=== PATIENT | female | born 1960 | race Caucasian/White ===

== ENCOUNTER 2016-02-18 17:50 | Emergency (ER) | payer OTHER ==
[~2016-02-18] VITALS: Ht 157.5 cm; Wt 95.1 kg
[~2016-02-18 17:50] MED LIST: ACETTAB14 PO; ASPI81TA28 PO; CARV6.252 PO; LEVO175T3 PO; MULT-513 PO; OXYC-643 PO
[2016-02-18 17:52] VITALS: TEMP 36.4; Ht 157.5 cm; Wt 95.1 kg
[2016-02-18] MEDS ORDERED: TRAZ100T29 PO (18:22)
[2016-02-18] MEDS ORDERED: CITA40TA4 PO (18:22)
[2016-02-18] MEDS ORDERED: LEVO200T PO (18:22)
[2016-02-18] MEDS ORDERED: PANT40TA PO (18:22)
[2016-02-18] MEDS ORDERED: SODIUM CHLORIDE 0.9% 1000ML 1,000 ML IV STA (20:08)
[2016-02-18] MEDS ORDERED: METOCLOPRAMIDE HCL INJ 5 MG/ML 2 ML VIAL IV STA (20:08)
[2016-02-18] MEDS ORDERED: DiphenhydrAMINE HCL 50 MG/ML VIAL IV STA (20:08)
[2016-02-18] MEDS ORDERED: KETOROLAC TROMETHAMINE 30 MG/ML VIAL IV STA (20:08)
[2016-02-18] MEDS ORDERED: LORAZEPAM 2 MG/ML 1 ML VIAL IV STA (21:19)
--- NOTE | 2016-02-18 22:08 | EMERGENCY ROOM VISIT NOTE ---
History Report prepared by Randal: Julián Lee Under the Supervision of: Dr. Ger Mane M.D. First contact with patient: 19:18 Chief Complaint: HEADACHE Stated Complaint: MIGRAINE, SICK STOMACH History of Present Illness The patient is a 55 year old female who presents to the Emergency Room with complaints of a constant migraine starting 0230 this morning. The patient currently rates her discomfort as a 7/10 in severity. The patient states that she was awake at 0230 this morning, and she got a migraine. She states that she was then asleep, and then it was still present when she woke up and after work, and he states that she is additionally nauseous. The patient states that she took Excedrin to try to help it. She states that the migraine starts at the top of her head and goes behind her eyes. The patient states that is very similar to her past migraines. Pt denies LOC, fevers, chills, diaphoresis, visual changes, neck pain, chest pain, breathing difficulties, vomiting, abdominal pain , back pain, melena, hematochezia, urinary symptoms, numbness, weakness, lymphadenopathy, rash, or other complaints. Source of History: patient Onset: 0230 this morning Position: head Symptom Intensity: 7/10 Quality: other (migraine) Timing: constant Associated Symptoms: + nausea Review of Systems See HPI for pertinent positives and negatives. A total of ten systems were reviewed and were otherwise negative. Past Medical & Surgical Medical Problems: (1) Cardiac Stents Placement (2) Coronary artery disease (3) Diab Rocio Wo Compl, Type Ii Or Unspec Type, Not Uncntrld (4) Hypertension Nos (5) Hyperthyroidism (6) Hypothyroidism Nos (7) Migraine Unspecified W/O Intractable Migraine (8) Pure Hypercholesterolem (9) Pyelonephritis Nos Surgical Problems: (1) History of delivery (2) History of cholecystectomy (3) History of total hysterectomy Family History Diabetes mellitus FH: migraines Hypertension Kidney disease Social History Smoking Status: Former Smoker Alcohol Use: none Drug Use: none Marital Status: Housing Status: lives with significant other Occupation Status: employed Current/Historical Medications Scheduled Aspirin (Aspirin Ec), 81 MG PO DAILY Carvedilol (Coreg), 6.25 MG PO BID Citalopram (Citalopram Hydrobromide), 40 MG PO DAILY Levothyroxine Sodium (Synthroid), 200 MCG PO DAILY Multivitamins/Minerals (Mvi With Minerals), 1 TAB PO QAM Pantoprazole (Protonix), 40 MG PO DAILY Trazodone Hcl (Trazodone), 100 MG PO HS Scheduled PRN Acetaminophen-Caffeine (Excedrin Tension Headache), 1 TAB PO UD PRN for Headache Oxycodone/Acetaminophen 5MG/325MG (Oxycodone/Acetaminophen 5MG/325MG), 1 TAB PO Q6H PRN for Pain Allergies Coded Allergies: Dexamethasone (Unverified Allergy, Severe, "I FEEL LIKE MY SKIN IS CRAWLING,HAIR IS BURNING INSIDE", 02/18/16) Adhesives (Verified Allergy, Mild, 02/18/16) Ampicillin (Verified Allergy, Mild, VOMITTING, 02/18/16) Amitriptyline (Verified Allergy, Unknown, UNKNOWN, 02/18/16) Sumatriptan (Verified Allergy, Unknown, 02/18/16) Prochlorperazine (Verified Adverse Reaction, Unknown, feels weird, 02/18/16 ) Physical Exam Vital Signs Date Time Temp Pulse Resp B/P Pulse Ox O2 Delivery O2 Flow Rate FiO2 02/18/16 20:31 64 22 141/88 95 Room Air 02/18/16 18:33 67 18 131/83 97 02/18/16 17:52 36.4 72 18 144/81 96 Room Air Physical Exam GENERAL: Awake, alert, uncomfortable appearing, no distress HENT: Normocephalic, atraumatic. TM's normal. Oropharynx unremarkable. EYES: PERRL. EOMI. Normal conjunctiva. Sclera non-icteric. NECK: Supple. No nuchal rigidity. FROM. No JVD or bruit. RESPIRATORY: CTA CARDIAC: RRR. No murmur. ABDOMEN: Soft, non distended. No tenderness to palpation. No rebound or guarding. No masses. RECTAL: Deferred. MUSCULOSKELETAL: Unremarkable. No edema. No discoloration. Gross motor strength symmetric. NEURO: Cranial nerves 2-12 grossly intact. Normal sensorium. No sensory or motor deficits noted. Speech normal. No pronator drift. SKIN: No rash or jaundice noted. LYMPH: No adenopathy. Medical Decision & Procedures Medications Administered Medications (Trade) Dose Ordered Sig/Natalie Route Start Time Stop Time Status Last Admin Dose Admin Sodium Chloride (Nss 1000ml) 1,000 ml @ 999 mls/hr Q1H1M STAT IV 02/18/16 20:08 02/18/16 21:08 DC 02/18/16 20:26 999 MLS/HR Metoclopramide HCl (Reglan Inj) 10 mg NOW STAT IV 02/18/16 20:08 02/18/16 20:11 DC 02/18/16 20:27 10 MG Ketorolac Tromethamine (Toradol Inj) 30 mg NOW STAT IV 02/18/16 20:08 02/18/16 20:11 DC 02/18/16 20:26 30 MG Diphenhydramine HCl (Benadryl Inj) 50 mg NOW STAT IV 02/18/16 20:08 02/18/16 20:11 DC 02/18/16 20:26 50 MG Lorazepam (Ativan Inj) 1 mg NOW STAT IV 02/18/16 21:19 02/18/16 21:20 DC 02/18/16 21:42 1 MG ED Course 1931: The patient was evaluated in room B8. A complete history and physical exam was performed. 2007: Benadryl Inj 50mg IV, Toradol Inj 30mg IV, Reglan Inj 10mg IV, Sodium Chloride 1000 ml @ 999 mls/hr IV 2107: I reassessed the patient, and she was feeling better 2118: Ativan Inj 1 mg IV 2127: I reevaluated the patient. Discussed results and discharge instructions: She verbalized understanding and agreement. The patient is ready for discharge. 2154: The patient was doing much better. Discussed discharge and close follow up. Instructions reviewed. Medical Decision Prior records/ancillary studies reviewed. Triage Nursing notes reviewed and agree them. The patient's history was concerning for headache. Differential diagnosis: Etiologies such as migraine headache, meningitis, sinusitis, CO exposure, ICH, SAH, infection, tumor, headache, sinus thrombosis, arterial dissection, as well as others were entertained. Physical examination findings: As above. Non-focal. ER treatment provided: Normal saline 1 L bolus Benadryl 50 mg IV Reglan 10 mg IV Toradol 30 mg IV On reassessment the patient felt better but noted some restless legs. I suspect this may be from the Reglan despite the Benadryl. IV Ativan 1 mg. On reassessment the patient much better. She was relaxed. Her headache was much improved. I discussed discharge and follow-up as an outpatient. The patient was in agreement.. Diagnostics interpreted by me: Deferred The patient has a long history of migraine headaches. The patient has had frequent visits to the emergency department for the same. She is routinely prescribed Percocet monthly by her primary office. The patient was placed on a no narcotics treatment due to frequent outpatient prescriptions and frequent Emergency Room visits. This was discussed with her at length. The patient indicated her understanding after the discussion. She had an IV established and was treated with the above medications. She was feeling better. She did have some restless legs which I believe was from the Reglan. She's had similar issues with Compazine in the past. She felt better after a dose of Ativan and already receiving Benadryl. The patient and her were also referred to pain management as I believe having a specialist evaluate her pain issues would be the safest option for her. I gave my usual and customary discussion regarding this issue. By the evaluation outlined above emergent etiologies such as meningitis, sinusitis, CO exposure, ICH, SAH, infection, temporal arteritis, tumor, sinus thrombosis, arterial dissection, as well as others were deemed relatively unlikely. The patient and were informed about the findings as listed above. All questions were answered and they were pleased with the treatment. Return instructions were outlined and the patient was discharged in stable condition. Outpatient prescription management: None Referral: The patient was referred back to her primary care physician for follow-up in 2 to 3 days as well as pain management for a recheck of the current condition. The chart was completed utilizing [employer] Speech voice recognition software. Grammatical errors, random word insertions, pronoun errors, and incomplete sentences are an occasional consequence of this system due to software limitations, ambient noise, and hardware issues. Any formal questions or concerns about the content, text, or information contained within the body of this dictation should be directly addressed to the physician for clarification. Impression Primary Impression: Headache Scribe Attestation The scribe's documentation has been prepared under my direction and personally reviewed by me in its entirety. I confirm that the note above accurately reflects all work, treatment, procedures, and medical decision making performed by me. Departure Information Dispostion Home / Self-Care Referrals Ofelia Fierro D.O. (PCP) Patient Instructions A Signature Page, My [facility] Additional Instructions HEADACHE INSTRUCTIONS: DO NOT drive, drink alcohol, operate machinery, or perform dangerous activities today. You were given medications in the ER that can affect your ability to safely function or operate a vehicle. Rest today in a quiet, peaceful, dark environment and get a full 8-10 hrs of sleep tonight. Avoid loud noises, smoke/smoking, alcohol, bright lights, stress, or physical exertion today to minimize the chance the headache may return. Continue current medications. Ibuprofen(Motrin, Advil) may be used for fever or pain. Use 600mg every six hours as needed. Take with food. Avoid using more than 2400mg in a 24 hour period. Do not use 2400mg per day for more than three consecutive days without physician direction. Prolonged inappropriate use can lead to stomach upset or ulcers. (AND/OR) Acetaminophen(Tylenol) may be used for fever or pain. Use 1000mg every six hours as needed. Avoid using more than 4000mg in a 24 hour period. Return to the ER for passing out, worsening headache, vision problems, neck stiffness/pain, fevers, vomiting, worsening of your condition, or as needed. Follow up with your primary physician in 2-3 days for a recheck of your current condition. Follow-up with pain management as discussed. If your local pain management is unable to assist you follow-up with Dr. Saeed at [facility] pain management.
[2016-02-18 22:33] VITALS: BP 120/73; PULSE 78; O2SAT 96
== END 2016-02-18 22:34 | disposition home or self-care (01) ==
LOC: C.EDB 17:51
DX: G43.909 Migraine, unspecified, not intractable, without status migrainosus (principal); Z95.5 Presence of coronary angioplasty implant and graft; I25.10 Atherosclerotic heart disease of native coronary artery without angina pectoris; I10 Essential (primary) hypertension; E03.9 Hypothyroidism, unspecified; E78.00 Pure hypercholesterolemia, unspecified; Z87.891 Personal history of nicotine dependence; Z90.49 Acquired absence of other specified parts of digestive tract; Z90.710 Acquired absence of both cervix and uterus; Z79.82 Long term (current) use of aspirin; Z79.899 Other long term (current) drug therapy

== ENCOUNTER 2016-03-20 20:47 | Emergency (ER) | payer OTHER ==
[~2016-03-20] VITALS: Ht 157.5 cm; Wt 95.3 kg
[~2016-03-20 20:47] MED LIST changes: +CITA40TA4 PO; -LEVO175T3 PO; +LEVO200T PO; +PANT40TA PO; +TRAZ100T29 PO
[2016-03-20 20:58] VITALS: TEMP 36.8; Ht 157.5 cm; Wt 95.3 kg
[2016-03-20] MEDS ORDERED: PROMETHAZINE HCL INJ 25 MG/ML 1 ML VIAL IM STA (21:08)
[2016-03-20] MEDS ORDERED: MoRPHine SULFATE 10 MG/ML CARP/VIAL IM STA (21:08)
[2016-03-20 21:38] VITALS: BP 162/88; PULSE 77; O2SAT 96
--- NOTE | 2016-03-21 00:29 | EMERGENCY ROOM VISIT NOTE ---
ED Visit Note First contact with patient: 21:01 CHIEF COMPLAINT: Migraine headache HISTORY OF PRESENT ILLNESS: Ms. Oropeza is a 55 year-old white female who ambulates into the ED complaining of a migraine headache. She reports a gradual onset of a severe migraine headache that started approximately approximately 2.5 days ago. The pain is constant and it is slowly increasing in severity. This is not the worst headache of the life and is similar to previous migraines. Currently she describes the headache as a throbbing/standing sensation/pain that starts at the top of the head and then goes behind the eyes and into the occipital area. She rates the pain a 8/10. She has not identified any aggravating or alleviating factors related to the pain. She reports taking a Percocet tablet at the time of the onset of her pain with minimal relief of her discomfort which then subsequently has rebounded. There is been associated mild light sensitivity, nausea and vomiting. She denies fevers, chills, sweats, skin eruptions, skin color changes, dizziness , lightheadedness, recent head trauma, upper respiratory tract symptoms, visual changes, hearing changes, difficulty speaking, difficulty swallowing, difficulty ambulating/coordinating body movements, recent dental work/trauma, cough, wheezing, shortness of breath, chest pain, abdominal pain, extremity weakness/numbness/tingling, neck/back pain, flank pain. REVIEW OF SYSTEMS: As noted above in History of Present Illness. All body systems were reviewed with this patient and found to be negative unless noted above otherwise. PAST MEDICAL HISTORY: Migraine headaches, diabetes, heart disease, hypertension , gallbladder disease, thyroid disease, kidney stones, status post section and unspecified wrist surgery. CURRENT MEDICATIONS: Medications Dose Route/Sig Max Daily Dose Days Date Category Dose Instructions Citalopram Hydrobromide (Citalopram) 40 Mg Tab 40 Mg PO DAILY 02/18/16 Reported Protonix (Pantoprazole Sodium) 40 Mg Tab 40 Mg PO DAILY 02/18/16 Reported Trazodone (Trazodone HCl) 100 Mg Tab 100 Mg PO HS 02/18/16 Reported Synthroid (Levothyroxine Sodium) 200 Mcg Tab 200 Mcg PO DAILY 02/18/16 Reported Aspirin Ec (Aspirin) 81 Mg Tab 81 Mg PO DAILY 08/01/15 Reported Coreg (Carvedilol) 6.25 Mg Tab 6.25 Mg PO BID 07/24/15 Reported Excedrin Tension Headache (Acetaminophen-Caffeine) 1 Tab Tab 1 Tab PO UD PRN 04/11/15 Reported TAKE PER PACKAGE DIRECTIONS. Oxycodone/Acetaminophen 5MG/325MG (Oxycodone/Acetaminophen) 1 Tab Tab 1 Tab PO Q6H PRN 08/02/14 Reported Mvi With Minerals (Multivitamins/Minerals) Tab 1 Tab PO QAM 04/21/14 Reported ALLERGIES TO MEDICATIONS: Penicillin, benzyl alcohol, prochlorperazine, saccharin, sumatriptan. SOCIAL HISTORY: Patient is currently employed; she lives with her and feels safer home environment; she denies tobacco and alcohol use. PHYSICAL EXAM: Vital Signs: Date Time Temp Pulse Resp B/P Pulse Ox O2 Delivery O2 Flow Rate FiO2 03/20/16 21:38 77 18 162/88 96 03/20/16 20:58 36.8 78 18 142/83 97 Room Air GENERAL: 55 year-old white female in moderate distress due to pain, afebrile and hemodynamically stable. Found lying on a bed in her hospital room in the dark. NEUROLOGIC: Awake, alert and oriented to person place and time. Answering questions appropriately and following commands. Cranial nerves II-XII grossly intact. No focal neurologic deficits noted. Good hand eye coordination. No focal motor or sensory deficits. Good short-term and long-term recall. SKIN: Warm, dry and pink. No rashes, lesions or soft tissue trauma noted. HEENT: Normocephalic, atraumatic. Pupils equal, round and reactive. Extraocular movements intact and there is no nystagmus. Sclera anicteric. Ears , nose and oropharynx clear. Funduscopic exam was deferred due to light sensitivity. NECK: Soft and supple. No tenderness through the central cervical region or cervical musculature. Full range of motion of the cervical spine without stiffness/nuchal rigidity. No lymphadenopathy, jugular venous distention, or bruits noted. THORAX: Lungs clear to auscultation and equal bilaterally with no wheezing, crackles, rhonchi or stridor and equal chest wall movements. HEART: Regular rate and rhythm with no murmurs, rubs or gallops. ABDOMEN: Soft and nontender with bowel sounds present in all quadrants; no rigidity, rebound tenderness, organomegaly or guarding. MUSCULOSKELETAL: Full range of motion of all joints without any significant discomfort and the gait is normal. ED COURSE: Patient is assessed with history and physical examination. Patient was given 10 mg of morphine IM and 25 mg of Phenergan IM for the pain and nausea. Patient was reassessed. Patient was educated about her condition and instructed on her treatment plan; she verbalized understanding and agreement with this plan. CLINICAL IMPRESSION: Migraine headache. DECISION MAKIN-year-old female who presents for evaluation of headache. She is afebrile, well appearing, and hemodynamically stable. She has no signs of a sinus, dental , or ear infection and no evidence of meningismus. She is neurologically intact. I do not suspect a headache to be secondary to a subarachnoid hemorrhage, meningitis, encephalitis, or intracranial mass lesion. DISPOSITION: Patient was discharged to home in stable condition accompanied by her ; prior to departure she was reassessed and subjectively reported she was feeling the same. DISCHARGE INSTRUCTIONS: Rest at home, in a quiet darkened room and allow the medication to work for the pain. Continue to follow up current treatment plan prescribed by your physician for your migraine headaches. See your own doctor in follow-up this week for continued care and treatment. Return to the emergency department as needed worsening/uncontrolled pain, abnormal neurological symptoms, fevers, in accordance with pain management treatment plan or any new/concerning symptoms.
== END 2016-03-20 21:39 | disposition home or self-care (01) ==
LOC: C.EDB 20:48 → C.EDD 21:39
DX: G43.909 Migraine, unspecified, not intractable, without status migrainosus (principal); E11.9 Type 2 diabetes mellitus without complications; I10 Essential (primary) hypertension; Z79.82 Long term (current) use of aspirin

== ENCOUNTER 2016-04-17 13:38 | Emergency (ER) | payer OTHER ==
[~2016-04-17] VITALS: Ht 157.5 cm; Wt 97.5 kg
[2016-04-17 13:38] VITALS: BP 145/82; PULSE 64; TEMP 36.9; O2SAT 93; Ht 157.5 cm; Wt 97.5 kg
[2016-04-17] MEDS ORDERED: KETOROLAC TROMETHAMINE 60 MG/2 ML VIAL IM STA (13:57)
[2016-04-17] MEDS ORDERED: ONDANSETRON 4MG OD TAB PO ONE (14:00)
--- NOTE | 2016-04-17 14:04 | EMERGENCY ROOM VISIT NOTE ---
ED Visit Note First contact with patient: 13:41 CHIEF COMPLAINT: Migraine headache HISTORY OF PRESENT ILLNESS: This 55-year-old female patient presented to the emergency department with a gradual onset of a severe generalized headache that started yesterday. There has been associated photophobia, phonophobia, nausea and vomiting. The patient denies fever or chills recently, and there is no weakness or numbness of the extremities. There is no difficulty with speech or vision. No trauma to the head and no neck pain. The pain is severe, constant, and it is slowly increasing in severity. The patient rates the pain as severe and 9/10. The patient has taken her usual medications. This is not the worst headache of the life and is similar to previous migraines. Previous imaging studies of the brain (CT scans) have been normal. REVIEW OF SYSTEMS: An 8 system review of systems was completed with positives and pertinent negatives listed in the HPI. ALLERGIES: See nursing notes MEDICATIONS: See nursing notes PMH: Migraines, hypothyroidism, GERD SOCIAL HISTORY: The patient lives locally with her PHYSICAL EXAM: Vital Signs: Reviewed Nurse's notes, vital signs stable. MENTAL STATUS: Alert, oriented, and coherent. In great distress from the headache. NECK : Supple, no nuchal rigidity, nontender, no lymphadenopathy. HEART: Regular rhythm and normal rate without murmurs, ectopy, gallops, or rubs. SKIN: Normal. NEUROLOGICAL: Pupils are round, equal and react to light. The optic fundi are normal and the discs are flat. EOMs are full and there is no nystagmus. The patient moves all extremities well and the gait is normal. EMERGENCY DEPARTMENT COURSE: I examined the patient. It should be noted that the patient has been changed to a no narcotic treatment protocol. I advised the patient of this. She has been told this multiple times in the past. The patient was given 60 milligrams IM Toradol and 4 mg oral Zofran. The patient states that this headache is no different than her typical headaches. She has not had any fevers, neck pain, neck stiffness. The differential diagnosis includes acute intracranial bleed, meningitis, encephalitis, mass or mass effect , sinusitis, infection, tumor, headache, temporal arteritis and carbon monoxide exposure, and migraine. The patient was discharged home in stable condition. DIAGNOSIS: Migraine headache DISCHARGE INSTRUCTIONS & TREATMENT: Rest at home, resume prescription medications. See your own doctor in follow-up. Problem List Medical Problems: (1) Cardiac Stents Placement Status: Resolved (2) Coronary artery disease Status: Chronic (3) Diab Rocio Wo Compl, Type Ii Or Unspec Type, Not Uncntrld Status: Chronic (4) Hypertension Nos Status: Chronic (5) Hyperthyroidism Status: Chronic (6) Hypothyroidism Nos Status: Chronic (7) Migraine Unspecified W/O Intractable Migraine Status: Chronic (8) Pure Hypercholesterolem Status: Chronic (9) Pyelonephritis Nos Status: Resolved Surgical Problems: (1) History of cholecystectomy Status: Resolved Current/Historical Medications Scheduled Aspirin (Aspirin Ec), 81 MG PO DAILY Carvedilol (Coreg), 6.25 MG PO BID Citalopram (Citalopram Hydrobromide), 40 MG PO QAM Levothyroxine Sodium (Synthroid), 200 MCG PO QAM Multivitamins/Minerals (Mvi With Minerals), 1 TAB PO QAM Pantoprazole (Protonix), 40 MG PO QAM Trazodone Hcl (Trazodone), 100 MG PO HS Scheduled PRN Acetaminophen-Caffeine (Excedrin Tension Headache), 1 TAB PO UD PRN for Headache Oxycodone/Acetaminophen 5MG/325MG (Oxycodone/Acetaminophen 5MG/325MG), 1 TAB PO Q6H PRN for Pain Allergies Coded Allergies: Dexamethasone (Unverified Allergy, Severe, "I FEEL LIKE MY SKIN IS CRAWLING,HAIR IS BURNING INSIDE", 04/17/16) Adhesives (Verified Allergy, Mild, 04/17/16) Ampicillin (Verified Allergy, Mild, VOMITTING, 04/17/16) Amitriptyline (Verified Allergy, Unknown, UNKNOWN, 04/17/16) Sumatriptan (Verified Allergy, Unknown, 04/17/16) Prochlorperazine (Verified Adverse Reaction, Unknown, feels weird, 04/17/16 ) Vital Signs Date Time Temp Pulse Resp B/P Pulse Ox O2 Delivery O2 Flow Rate FiO2 04/17/16 13:38 36.9 64 17 145/82 93 Room Air Medications Administered Medications (Trade) Dose Ordered Sig/Natalie Route Start Time Stop Time Status Last Admin Dose Admin Ketorolac Tromethamine (Toradol Inj) 60 mg NOW STAT IM 04/17/16 13:57 04/17/16 13:58 DC 04/17/16 14:07 60 MG Ondansetron HCl (Zofran Odt) 4 mg ONE ONCE PO 04/17/16 14:00 04/17/16 14:01 DC 04/17/16 14:06 4 MG Departure Information Impression Primary Impression: Migraine Dispostion Home / Self-Care Condition GOOD Referrals Ofelia Fierro D.O. (PCP) Patient Instructions ED Headache Migraine, My [facility] Additional Instructions Rest at home, resume prescription medications. See your own doctor in follow-up. Problem Qualifiers Primary Impression: Migraine
== END 2016-04-17 14:12 | disposition home or self-care (01) ==
LOC: C.EDB 13:38 → C.EDD 14:12
DX: G43.909 Migraine, unspecified, not intractable, without status migrainosus (principal); K21.9 Gastro-esophageal reflux disease without esophagitis; E03.9 Hypothyroidism, unspecified; I25.10 Atherosclerotic heart disease of native coronary artery without angina pectoris; E11.9 Type 2 diabetes mellitus without complications; I10 Essential (primary) hypertension; E05.90 Thyrotoxicosis, unspecified without thyrotoxic crisis or storm; E78.00 Pure hypercholesterolemia, unspecified; Z90.49 Acquired absence of other specified parts of digestive tract; Z79.82 Long term (current) use of aspirin

== ENCOUNTER 2016-05-21 21:13 | Emergency (ER) | payer OTHER ==
[~2016-05-21] VITALS: Ht 157.5 cm; Wt 96.2 kg
[~2016-05-21 21:13] MED LIST changes: -ACETTAB14 PO; +ACETTAB15 PO
[2016-05-21 21:15] VITALS: Ht 157.5 cm; Wt 96.2 kg
[2016-05-21] MEDS ORDERED: KETOROLAC TROMETHAMINE 60 MG/2 ML VIAL IM STA (21:27)
[2016-05-21] MEDS ORDERED: PROMETHAZINE HCL 25 MG TAB PO STA (21:27)
[2016-05-21] MEDS ORDERED: PHENERGAN 25MG HOMEPACK PO ONE (21:30)
--- NOTE | 2016-05-21 21:44 | EMERGENCY ROOM VISIT NOTE ---
History First contact with patient: 21:27 Chief Complaint: HEADACHE Stated Complaint: MIGRAINE History of Present Illness The patient is a 55 year old female who presents to the Emergency Room with complaints of migraine for the past day described as throbbing, ranging in severity 7 out of 10 throughout the temporal region similar to prior. Patient complains of nausea and vomiting. She is out of her Phenergan. She tried this with minimal improvement of symptoms. Patient sees Dr. Chino from neurology. She has a long-standing history of migraines and symptoms are similar. Patient denies sudden onset headache, fever, chills, cough, congestion, neck stiffness, numbness, tingling, localized weakness. Patient denies any other medical complaints. Her is driving. Review of Systems See HPI for pertinent positives & negatives. A total of 10 systems reviewed and were otherwise negative. Past Medical/Surgical History Medical Problems: (1) Cardiac Stents Placement (2) Coronary artery disease (3) Diab Rocio Wo Compl, Type Ii Or Unspec Type, Not Uncntrld (4) Hypertension Nos (5) Hyperthyroidism (6) Hypothyroidism Nos (7) Migraine Unspecified W/O Intractable Migraine (8) Pure Hypercholesterolem (9) Pyelonephritis Nos Surgical Problems: (1) History of delivery (2) History of cholecystectomy (3) History of total hysterectomy Family History Diabetes mellitus FH: migraines Hypertension Kidney disease Social History Smoking Status: Never Smoker Alcohol Use: none Drug Use: none Marital Status: Housing Status: lives with significant other Occupation Status: employed Current/Historical Medications Scheduled Aspirin (Aspirin Ec), 81 MG PO DAILY Carvedilol (Coreg), 6.25 MG PO BID Citalopram (Citalopram Hydrobromide), 40 MG PO QAM Levothyroxine Sodium (Synthroid), 200 MCG PO QAM Multivitamins/Minerals (Mvi With Minerals), 1 TAB PO QAM Pantoprazole (Protonix), 40 MG PO QAM Trazodone Hcl (Trazodone), 100 MG PO HS Scheduled PRN Acetaminophen-Caffeine (Excedrin Tension Headache), 1 TAB PO UD PRN for Headache Oxycodone/Acetaminophen 5MG/325MG (Oxycodone/Acetaminophen 5MG/325MG), 1 TAB PO Q6H PRN for Pain Allergies Coded Allergies: Dexamethasone (Verified Allergy, Severe, "I FEEL LIKE MY SKIN IS CRAWLING, HAIR IS BURNING INSIDE", 05/21/16) Adhesives (Verified Allergy, Mild, 05/21/16) Ampicillin (Verified Allergy, Mild, VOMITTING, 05/21/16) Amitriptyline (Verified Allergy, Unknown, UNKNOWN, 05/21/16) Sumatriptan (Verified Allergy, Unknown, 05/21/16) Prochlorperazine (Verified Adverse Reaction, Unknown, feels weird, 05/21/16 ) Physical Exam Vital Signs Date Time Temp Pulse Resp B/P Pulse Ox O2 Delivery O2 Flow Rate FiO2 05/21/16 21:15 36.5 78 18 171/95 97 Room Air Physical Exam VITALS: Vitals are noted on the nurse's note and reviewed by myself. Vital signs hypertensive. GENERAL: Pleasant female, in no acute distress, nondiaphoretic, well-developed well-nourished. SKIN: The skin was without rashes, erythema, edema, or bruising. There is no tenting of the skin. Capillary reflex less than 2 seconds. HEAD: Normocephalic atraumatic. EARS: External auditory canals clear, tympanic membranes pearly rodríguez without erythema or effusion bilaterally. EYES: Pupils equal round and reactive to light and accommodation. Conjunctivae without injection, sclerae without icterus. Extraocular movements intact. NOSE: Patent, turbinates without inflammation or discharge. No sinus tenderness. MOUTH: Mucous membranes moist. Pharynx without erythema or exudate. Uvula midline. Airway patent. Tongue does not deviate. NECK: Supple without nuchal rigidity. No lymphadenopathy. No thyromegaly. Cervical spine is nontender. No JVD. HEART: Regular rate and rhythm LUNGS: Clear to auscultation bilaterally without wheezes, rales or rhonchi. No dullness to percussion. No retractions or accessory muscle use. ABDOMEN: Positive bowel sounds x 4. Normal tympanic percussion. Soft, nontender, without masses or organomegaly. Salter sign negative. No guarding or rebound tenderness. MUSCULOSKELETAL: No muscle atrophy, erythema, or edema noted. NEURO: Patient was alert and oriented to person place and time. Normal sensation to light and sharp touch. No focal neurological deficits. Cranial nerves II through XII grossly intact. No pronator drift. Cerebellar exam intact. Medical Decision & Procedures ED Course Prior records/ancillary studies reviewed. Additional history obtained from family. Triage Nursing notes reviewed. The patient's history was concerning for headache. Differential diagnosis: Etiologies such as migraine headache, meningitis, sinusitis, CO exposure, ICH, SAH, infection, tumor, headache, sinus thrombosis, arterial dissection, as well as others were entertained. Physical examination findings: As above. Non-focal. ER treatment provided: Toradol, Phenergan On reassessment the patient felt better. Diagnostics interpreted by me: Deferred This appears to be consistent with migraine. Patient has a long-standing history of migraines and symptoms feel similar. She is neurovascularly and neurologically intact. No deficits on exam. She is well-known to this ER for frequent migraine visits. Patient was advised to follow-up with her neurologist in a few days or here in the ER sooner for headache, fevers, worsening signs or symptoms or concerns.. By the evaluation outlined above emergent etiologies such as meningitis, sinusitis, CO exposure, ICH, SAH, infection, temporal arteritis, tumor, sinus thrombosis, arterial dissection, as well as others were deemed relatively unlikely. The pt informed about the findings as listed above. All questions were answered and pleased with the treatment. Return instructions were outlined and the patient was discharged in stable condition. Outpatient prescription management: Phenergan Referral: The patient was referred back to their primary care physician and/or neurology for follow-up in 2 to 3 days for a recheck of the current condition. Medical Decision As above Impression Primary Impression: Migraine Departure Information Dispostion Home / Self-Care Condition GOOD Referrals Ofelia Fierro D.O. (PCP) Forms HOME CARE DOCUMENTATION FORM, IMPORTANT VISIT INFORMATION Patient Instructions Headaches Migraine and Tension, My [facility] Additional Instructions DO NOT drive, drink alcohol, operate machinery, or perform dangerous activities today. You were given medications in the ER that can affect your ability to safely function or operate a vehicle. Rest today in a quiet, peaceful, dark environment and get a full 8-10 hrs of sleep tonight. Avoid loud noises, smoke/smoking, alcohol, bright lights, stress, or physical exertion today to minimize the chance the headache may return. Continue current medications. Ibuprofen(Motrin, Advil) may be used for fever or pain. Use 600mg every six hours as needed. Take with food. Avoid using more than 2400mg in a 24 hour period. Do not use 2400mg per day for more than three consecutive days without physician direction. Prolonged inappropriate use can lead to stomach upset or ulcers. (AND/OR) Acetaminophen(Tylenol) may be used for fever or pain. Use 1000mg every six hours as needed. Avoid using more than 3000mg in a 24 hour period. Return to the ER for passing out, worsening headache, vision problems, neck stiffness/pain, fevers, vomiting, worsening of your condition, or as needed. Follow up with your primary physician and/or a neurologist in 2-3 days for a recheck of your current condition. Problem Qualifiers Primary Impression: Migraine Migraine type: without aura Status migrainosus presence: without status migrainosus Intractability: not intractable Qualified Codes: G43.009 - Migraine without aura, not intractable, without status migrainosus
[2016-05-21 22:15] VITALS: BP 155/91; PULSE 71; TEMP 36.5; O2SAT 97
== END 2016-05-21 22:16 | disposition home or self-care (01) ==
LOC: C.EDB 21:13 → C.EDD 22:16
DX: G43.009 Migraine without aura, not intractable, without status migrainosus (principal); R11.2 Nausea with vomiting, unspecified; I25.10 Atherosclerotic heart disease of native coronary artery without angina pectoris; E11.9 Type 2 diabetes mellitus without complications; I10 Essential (primary) hypertension; E03.9 Hypothyroidism, unspecified; E78.5 Hyperlipidemia, unspecified; N10 Acute pyelonephritis; Z95.5 Presence of coronary angioplasty implant and graft; Z90.710 Acquired absence of both cervix and uterus; Z83.3 Family history of diabetes mellitus; Z82.49 Family history of ischemic heart disease and other diseases of the circulatory system; Z79.82 Long term (current) use of aspirin

== ENCOUNTER 2016-08-29 15:48 | Emergency (ER) | payer OTHER ==
[~2016-08-29] VITALS: Ht 157.5 cm; Wt 96.9 kg
[~2016-08-29 15:48] MED LIST changes: +ACETTAB14 PO; -ACETTAB15 PO
[2016-08-29 15:53] VITALS: TEMP 36.7; Ht 157.5 cm; Wt 96.9 kg
[2016-08-29] MEDS ORDERED: MoRPHine SULFATE 10 MG/ML CARP/VIAL IM STA (16:06)
[2016-08-29] MEDS ORDERED: PROMETHAZINE HCL INJ 25 MG/ML 1 ML VIAL IM STA (16:06)
[2016-08-29 16:32] VITALS: BP 118/75; PULSE 71; O2SAT 98
--- NOTE | 2016-08-29 23:26 | EMERGENCY ROOM VISIT NOTE ---
ED Visit Note First contact with patient: 15:59 CHIEF COMPLAINT: Migraine headache HISTORY OF PRESENT ILLNESS: Ms. Oropeza is a 55 year-old white female who ambulates into the ED accompanied by female friend complaining of a migraine headache. She reports a gradual onset of a severe migraine headache that started approximately approximately 2.5 days ago. The pain is constant and it is slowly increasing in severity. This is not the worst headache of the life and is similar to previous migraines. Currently she describes the headache as a throbbing/standing sensation/pain that starts at the top of the head and then goes behind the eyes and into the occipital area. She rates the pain a 8/10. She has not identified any aggravating or alleviating factors related to the pain. She reports taking a Percocet tablet at the time of the onset of her pain with minimal relief of her discomfort which then subsequently has rebounded. There is been associated mild light sensitivity, nausea and vomiting. She denies fevers, chills, sweats, skin eruptions, skin color changes, dizziness , lightheadedness, recent head trauma, upper respiratory tract symptoms, visual changes, hearing changes, difficulty speaking, difficulty swallowing, difficulty ambulating/coordinating body movements, recent dental work/trauma, cough, wheezing, shortness of breath, chest pain, abdominal pain, extremity weakness/numbness/tingling, neck/back pain, flank pain. REVIEW OF SYSTEMS: As noted above in History of Present Illness. All body systems were reviewed with this patient and found to be negative unless noted above otherwise. PAST MEDICAL HISTORY: Migraine headaches, diabetes, heart disease, hypertension , gallbladder disease, thyroid disease, kidney stones, status post section and unspecified wrist surgery. CURRENT MEDICATIONS: Medications Dose Route/Sig Max Daily Dose Days Date Category Dose Instructions Trazodone (Trazodone HCl) 100 Mg Tab 100 Mg PO HS 02/18/16 Reported Synthroid (Levothyroxine Sodium) 200 Mcg Tab 200 Mcg PO QAM 02/18/16 Reported Aspirin Ec (Aspirin) 81 Mg Tab 81 Mg PO DAILY 08/01/15 Reported Coreg (Carvedilol) 6.25 Mg Tab 6.25 Mg PO BID 07/24/15 Reported Excedrin Tension Headache (Acetaminophen-Caffeine) 1 Tab Tab 1 Tab PO UD PRN 04/11/15 Reported TAKE PER PACKAGE DIRECTIONS. Oxycodone/Acetaminophen 5MG/325MG (Oxycodone/Acetaminophen) 1 Tab Tab 1 Tab PO Q6H PRN 08/02/14 Reported Mvi With Minerals (Multivitamins/Minerals) Tab 1 Tab PO QAM 04/21/14 Reported ALLERGIES TO MEDICATIONS: Penicillin, benzyl alcohol, prochlorperazine, saccharin, sumatriptan. SOCIAL HISTORY: Patient is currently employed; she lives with her and feels safer home environment; she denies tobacco and alcohol use. PHYSICAL EXAM: Vital Signs: Date Time Temp Pulse Resp B/P (MAP) Pulse Ox O2 Delivery O2 Flow Rate FiO2 08/29/16 16:32 71 16 118/75 98 08/29/16 15:53 36.7 73 18 129/87 96 Room Air GENERAL: 55 year-old white female in moderate distress due to pain, afebrile and hemodynamically stable. Found lying on a bed in her hospital room in the dark. NEUROLOGIC: Awake, alert and oriented to person place and time. Answering questions appropriately and following commands. Cranial nerves II-XII grossly intact. No focal neurologic deficits noted. Good hand eye coordination. No focal motor or sensory deficits. Good short-term and long-term recall. SKIN: Warm, dry and pink. No rashes, lesions or soft tissue trauma noted. HEENT: Normocephalic, atraumatic. Pupils equal, round and reactive. Extraocular movements intact and there is no nystagmus. Sclera anicteric. Ears , nose and oropharynx clear. Funduscopic exam was deferred due to light sensitivity. NECK: Soft and supple. No tenderness through the central cervical region or cervical musculature. Full range of motion of the cervical spine without stiffness/nuchal rigidity. No lymphadenopathy, jugular venous distention, or bruits noted. THORAX: Lungs clear to auscultation and equal bilaterally with no wheezing, crackles, rhonchi or stridor and equal chest wall movements. HEART: Regular rate and rhythm with no murmurs, rubs or gallops. ABDOMEN: Soft and nontender with bowel sounds present in all quadrants; no rigidity, rebound tenderness, organomegaly or guarding. MUSCULOSKELETAL: Full range of motion of all joints without any significant discomfort and the gait is normal. ED COURSE: Patient is assessed with history and physical examination. Patient was given 10 mg of morphine IM and 25 mg of Phenergan IM for the pain and nausea. Patient was reassessed. Patient was educated about her condition and instructed on her treatment plan; she verbalized understanding and agreement with this plan. CLINICAL IMPRESSION: Migraine headache. DECISION MAKIN-year-old female who presents for evaluation of headache. She is afebrile, well appearing, and hemodynamically stable. She has no signs of a sinus, dental , or ear infection and no evidence of meningismus. She is neurologically intact. I do not suspect a headache to be secondary to a subarachnoid hemorrhage, meningitis, encephalitis, or intracranial mass lesion. DISPOSITION: Patient was discharged to home in stable condition accompanied by her daughter; prior to departure she was reassessed and subjectively reported she was feeling better and rated her discomfort 6/10. DISCHARGE INSTRUCTIONS: Rest at home, in a quiet darkened room and allow the medication to work for the pain. Continue to follow up current treatment plan prescribed by your physician for your migraine headaches. See your own doctor in follow-up this week for continued care and treatment. Return to the emergency department as needed worsening/uncontrolled pain, abnormal neurological symptoms, fevers, in accordance with pain management treatment plan or any new/concerning symptoms.
== END 2016-08-29 16:33 | disposition home or self-care (01) ==
LOC: C.EDB 15:49 → C.EDD 16:33
DX: G43.909 Migraine, unspecified, not intractable, without status migrainosus (principal); E11.9 Type 2 diabetes mellitus without complications; I10 Essential (primary) hypertension; Z87.442 Personal history of urinary calculi; Z98.891 History of uterine scar from previous surgery; Z98.890 Other specified postprocedural states; Z79.82 Long term (current) use of aspirin; Z79.899 Other long term (current) drug therapy

== ENCOUNTER 2017-02-04 20:38 | Emergency (ER) | payer OTHER ==
[~2017-02-04] VITALS: Ht 157.5 cm; Wt 91.8 kg
[~2017-02-04 20:38] MED LIST changes: -ACETTAB14 PO; -CITA40TA4 PO; -PANT40TA PO
[2017-02-04 20:39] VITALS: BP 130/85; PULSE 79; TEMP 36.8; O2SAT 94; Ht 157.5 cm; Wt 91.8 kg
[2017-02-04] MEDS ORDERED: SODIUM CHLORIDE 0.9% 1000ML 1,000 ML IV STA (20:46)
[2017-02-04] MEDS ORDERED: KETOROLAC TROMETHAMINE 30 MG/ML VIAL IV STA (20:46)
[2017-02-04] MEDS ORDERED: METOCLOPRAMIDE HCL INJ 5 MG/ML 2 ML VIAL IV STA (20:46)
--- NOTE | 2017-02-04 20:52 | EMERGENCY ROOM VISIT NOTE ---
History Report prepared by Randal: Albaro Rebollar Under the Supervision of: Dr. Zachary Velasco M.D. First contact with patient: 20:42 Chief Complaint: HEADACHE Stated Complaint: MIGRAINE History of Present Illness The patient is a 56 year old female who presents to the Emergency Room with complaints of a worsening headache that began 16 hours ago. She states the headache awoke her from her sleep. She describes the pain as an 8/10 in severity. She states the pain is located on the top of her head and feels like her "eyeballs are being pushed out of their sockets". She has associated symptoms of vomiting that have been resolved since coming to the ED. She denies back pain, neck pain, nausea, fevers, and chills. Patient states that symptoms are similar to migraines she has had in the past. She states that she follows up with her doctor for her migraines. She currently takes Percocet and Butalbital. Patient's last time in the ER was 4 months ago. Source of History: patient Onset: 16 hours ago Position: head Symptom Intensity: 8/10 Timing: worsening Associated Symptoms: No fevers, No chills, No neck pain, No nausea, No back pain Review of Systems See HPI for pertinent positives and negatives. A total of ten systems were reviewed and were otherwise negative. Past Medical & Surgical Medical Problems: (1) Cardiac Stents Placement (2) Coronary artery disease (3) Diab Rocio Wo Compl, Type Ii Or Unspec Type, Not Uncntrld (4) Hypertension Nos (5) Hyperthyroidism (6) Hypothyroidism Nos (7) Migraine Unspecified W/O Intractable Migraine (8) Pure Hypercholesterolem (9) Pyelonephritis Nos Surgical Problems: (1) History of delivery (2) History of cholecystectomy (3) History of total hysterectomy Family History Diabetes mellitus FH: migraines Hypertension Kidney disease Social History Smoking Status: Never Smoker Alcohol Use: none Drug Use: none Marital Status: Housing Status: lives with significant other Occupation Status: employed Current/Historical Medications Scheduled Aspirin (Aspirin Ec), 81 MG PO DAILY Carvedilol (Coreg), 6.25 MG PO BID Levothyroxine Sodium (Synthroid), 200 MCG PO QAM Multivitamins/Minerals (Mvi With Minerals), 1 TAB PO QAM Trazodone Hcl (Trazodone), 100 MG PO HS Scheduled PRN Acetaminophen-Caffeine (Excedrin Tension Headache), 1 TAB PO UD PRN for Headache Oxycodone/Acetaminophen 5MG/325MG (Oxycodone/Acetaminophen 5MG/325MG), 1 TAB PO Q6H PRN for Pain Allergies Coded Allergies: Dexamethasone (Verified Allergy, Severe, "I FEEL LIKE MY SKIN IS CRAWLING, HAIR IS BURNING INSIDE", 08/29/16) Adhesives (Verified Allergy, Mild, 08/29/16) Ampicillin (Verified Allergy, Mild, VOMITTING, 08/29/16) Amitriptyline (Verified Allergy, Unknown, UNKNOWN, 08/29/16) Sumatriptan (Verified Allergy, Unknown, 08/29/16) Diphenhydramine (Verified Adverse Reaction, Intermediate, "SKIN CRAWLS", ) Prochlorperazine (Verified Adverse Reaction, Intermediate, "SKIN CRAWLS", 08/29/16) Physical Exam Vital Signs Date Time Temp Pulse Resp B/P (MAP) Pulse Ox O2 Delivery O2 Flow Rate FiO2 02/04/17 20:39 36.8 79 18 130/85 94 Room Air Physical Exam GENERAL: Awake, alert, uncomfortable, in no distress HENT: Normocephalic, atraumatic. Oropharynx unremarkable. Dry mucous membranes. EYES: Normal conjunctiva. Sclera non-icteric. NECK: Supple. No nuchal rigidity. FROM. No JVD. RESPIRATORY: Clear to auscultation. CARDIAC: Regular rate, normal rhythm. Extremities warm and well perfused. Pulses equal. ABDOMEN: Soft, non-distended. No tenderness to palpation. No rebound or guarding. No masses. RECTAL: Deferred. MUSCULOSKELETAL: Chest examination reveals no tenderness. The back is symmetrical on inspection without obvious abnormality. There is no CVA tenderness to palpation. No joint edema. LOWER EXTREMITIES: Calves are equal size bilaterally and non-tender. No edema. No discoloration. NEURO: Normal sensorium. No sensory or motor deficits noted. SKIN: No rash or jaundice noted. Medical Decision & Procedures Medications Administered Medications (Trade) Dose Ordered Sig/Natalie Route Start Time Stop Time Status Last Admin Dose Admin Ketorolac Tromethamine (Toradol Inj) 30 mg NOW STAT IM 02/04/17 21:20 02/04/17 21:21 DC 02/04/17 21:20 30 MG Metoclopramide HCl (Reglan Inj) 10 mg NOW STAT IM 02/04/17 21:20 02/04/17 21:21 DC 02/04/17 21:26 10 MG ED Course 2044: The patient was evaluated in room C2. A complete history and physical exam was performed. 2239: I reevaluated the patient. Discussed results and discharge instructions. She verbalized understanding and agreement. The patient is ready for discharge. Medical Decision I reviewed the patient's past medical history, medications, and the nursing notes as described above. Differential Diagnosis: Migraine headache, tension headache, dehydration The patient is a 56 y/o woman with a pmhx of migraines presents to the emergency department with migraine HENSON, which she reports is typical for her migraines per HPI. On arrival the patient is uncomfortable but in NAD, AFVSS. Neuro intact. Neck supple. Patient was difficult IV access so given IV toradol and reglan with good effect. Findings and plan for follow-up reviewed with patient. Patient agreeable and d/c'd per discharge instructions. Medication Reconcilliation Current Medication List: was personally reviewed by me Blood Pressure Screening Patient's blood pressure: Normal blood pressure Blood pressure disposition: Did not require urgent referral Impression Primary Impression: Migraine Scribe Attestation The scribe's documentation has been prepared under my direction and personally reviewed by me in its entirety. I confirm that the note above accurately reflects all work, treatment, procedures, and medical decision making performed by me. Departure Information Dispostion Home / Self-Care Referrals Ofelia Fierro D.O. (PCP) Patient Instructions ED Headache Migraine, My [facility] Additional Instructions Please follow up with your primary care physician in the next 1-3 days for re- evaluation. You were treated for your migraine headache. Otherwise, your exam did not show signs of an emergent condition at this time. Continue your current medications. Drink plenty of fluids to ensure hydration. Return to the emergency department for worsening symptoms as described in the accompanying instructions.
[2017-02-04] MEDS ORDERED: METOCLOPRAMIDE HCL INJ 5 MG/ML 2 ML VIAL IM STA (21:20)
[2017-02-04] MEDS ORDERED: KETOROLAC TROMETHAMINE 60 MG/2 ML VIAL IM STA (21:20)
[2017-02-04] MEDS ORDERED: ACETTAB15 PO (22:23)
== END 2017-02-04 22:52 | disposition home or self-care (01) ==
LOC: C.EDB 20:39 → C.EDC 22:52
DX: G43.909 Migraine, unspecified, not intractable, without status migrainosus (principal); E03.9 Hypothyroidism, unspecified; Z79.899 Other long term (current) drug therapy